=== PATIENT | male | born 1975 | race Caucasian/White ===

== ENCOUNTER 2016-04-23 15:29 | Inpatient (IN) | payer BC ==
[2016-04-23] MEDS ORDERED: IV VANCOMYCIN PER PHARMACY 1 EACH MISC MISCELLANE PRN (15:58)
[2016-04-23] MEDS ORDERED: SODIUM CHLORIDE 0.9% 500 ML IV STA (15:58)
[2016-04-23] MEDS ORDERED: KETOROLAC 30 MG/ML 1 ML VIAL IVP STA (16:00)
--- NOTE | 2016-04-23 16:00 | ED ---
Skin/Abscess/FB HPI - General Chief complaint: Skin/Abscess/Foreign Body Stated complaint: Skin abcess/leg Time Seen by Provider: 04/23/16 15:50 Source: patient, RN notes reviewed Mode of arrival: ambulatory Limitations: no limitations - History of Present Illness Initial comments: 40-year-old male presents to emergency room chief complaint of right posterior thigh redness swelling. Patient states she's had this redness and swelling for the past week or so. Patient states that he started antibiotics about 2 days ago and he's noticed that the toe most doubled in size it's more tender. Patient states there is any drainage from it. Patient denies any fever chills numbness. Patient denies any history of from this in the past. Patient denies any cough cold runny nose. Patient states she was concerned due to the continued redness and the fact that it was getting worse and not better so he thought that he should be evaluated.Patient denies any recent fever, chills, shortness of breath, chest pain, back pain, abdominal pain, nausea vomiting, numbness or tingling, dysuria or hematuria, constipation or diarrhea, headaches or visual changes, or any other current symptoms. - Related Data Home Medications Medication Instructions Recorded Confirmed Levofloxacin [Levaquin] 750 mg PO DAILY 04/23/16 04/23/16 Allergies Allergy/AdvReac Type Severity Reaction Status Date / Time No Known Allergies Allergy Verified 04/23/16 15:41 Review of Systems ROS Statement: Those systems with pertinent positive or pertinent negative responses have been documented in the HPI. ROS Other: All systems not noted in ROS Statement are negative. Past Medical History Past Medical History: No Reported History History of Any Multi-Drug Resistant Organisms: None Reported Past Surgical History: Adenoidectomy, Cholecystectomy, Orthopedic Surgery Past Psychological History: No Psychological Hx Reported Smoking Status: Current every day smoker Past Alcohol Use History: Occasional Past Drug Use History: None Reported General Exam - General Exam Comments Initial Comments: General: The patient is awake and alert, in no distress, and does not appear acutely ill. Neck: The neck is supple, there is no tenderness. Cardiovascular: There is a regular rate and rhythm. No murmur, rub or gallop is appreciated. Respiratory: Lungs are clear to auscultation, respirations are non-labored, breath sounds are equal. No wheezes, stridor, rales, or rhonchi. Musculoskeletal: Sensation intact to both pulses throughout right lower extremity. Patient has an indurated erythematous area to the posterior thigh that extends for about 50% of the posterior pharynx area. It does appear to be a small abrasion to the center of the area. Ovaries motion of right hip and right knee. Neurological: CN II-XII intact, There are no obvious motor or sensory deficits. Coordination appears grossly intact. Speech is normal. Skin: Skin is warm and dry and no rashes or lesions are noted. Psychiatric: Normal mood and affect. Limitations: no limitations Course Vital Signs 04/23/16 15:37 Temperature 97.7 F Pulse Rate 89 Respiratory 16 Rate Blood Pressure 135/74 Medical Decision Making - Medical Decision Making 40-year-old male presents for what appears to be a cellulitis to the right posterior thigh. Patient has failed outpatient treatment and it states that it is beating getting worse it is almost doubled in size over night. At this time lab work was reviewed. This we will admit patient for IV antibiotics. We did discuss this with the patient he is in agreement the plan. On-call was called regarding the case and they do agree to the admission. - Lab Data Result diagrams: 04/23/16 16:14 04/23/16 16:14 Lab Results 04/23/16 04/23/16 04/23/16 Range/Units 16:14 16:14 16:14 WBC 12.7 H (3.8-10.6) k/uL RBC 4.67 (4.30-5.90) m/uL Hgb 15.1 (13.0-17.5) gm/dL Hct 44.0 (39.0-53.0) % MCV 94.2 (80.0-100.0) fL MCH 32.2 (25.0-35.0) pg MCHC 34.2 (31.0-37.0) g/dL RDW 12.7 (11.5-15.5) % Plt Count 219 (150-450) k/uL Neutrophils % 71 % Lymphocytes % 19 % Monocytes % 6 % Eosinophils % 2 % Basophils % 0 % Neutrophils # 9.0 H (1.3-7.7) k/uL Lymphocytes # 2.4 (1.0-4.8) k/uL Monocytes # 0.8 (0-1.0) k/uL Eosinophils # 0.3 (0-0.7) k/uL Basophils # 0.0 (0-0.2) k/uL Sodium 143 (137-145) mmol/L Potassium 4.1 (3.5-5.1) mmol/L Chloride 109 H (98-107) mmol/L Carbon Dioxide 24 (22-30) mmol/L Anion Gap 10 mmol/L BUN 17 (9-20) mg/dL Creatinine 1.10 (0.66-1.25) mg/dL Est GFR (MDRD) Af Amer >60 (>60 ml/min/1.73 sqM) Est GFR (MDRD) Non-Af >60 (>60 ml/min/1.73 sqM) Glucose 111 H (74-99) mg/dL Plasma Lactic Acid Thaddeus 1.3 (0.7-2.0) mmol/L Calcium 9.1 (8.4-10.2) mg/dL Total Bilirubin 0.9 (0.2-1.3) mg/dL AST 27 (17-59) U/L ALT 40 (21-72) U/L Alkaline Phosphatase 104 (38-126) U/L Total Protein 7.0 (6.3-8.2) g/dL Albumin 3.7 (3.5-5.0) g/dL - Radiology Data Radiology results: report reviewed, image reviewed Disposition Clinical Impression: Cellulitis of right thigh, Failure of outpatient treatment Disposition: ADMITTED IP TO THIS [facility] Condition: Stable Referrals: Trent Baron MD [Primary Care Provider] - 1-2 days Decision Date: 04/23/16 Decision Time: 17:02
[2016-04-23] MEDS ORDERED: VANCOMYCIN 1,750 MG in SODIUM CHLORIDE 0.9% 250 ML IVPB STA (16:02)
[2016-04-23 16:26] LABS: Basophils % (A) 0 %; CH 32.9; Eosinophils # (A) 0.3 k/uL (0-0.7); Eosinophils % (A) 2 %; HDW 2.55; HGB 15.1 gm/dL (13.0-17.5); Luc # (Auto) 0.25; Luc % (Auto) 2; Lymphocytes # (A) 2.4 k/uL (1.0-4.8); Lymphocytes % (A) 19 %; MCH 32.2 pg (25.0-35.0); MCHC 34.2 g/dL (31.0-37.0); MCV 94.2 fL (80.0-100.0); Mean Platelet Volume 7.3; Monocytes # (A) 0.8 k/uL (0-1.0); Monocytes % (A) 6 %; Neutrophils % (A) 71 %; RBC 4.67 m/uL (4.30-5.90); RDW 12.7 % (11.5-15.5); WBC 12.7 k/uL (3.8-10.6); WBC (Perox) 13.17
[2016-04-23 16:37] LABS: ALT 40 U/L (21-72); AST 27 U/L (17-59); Alkaline Phosphatase 104 U/L (38-126); Anion Gap 10 mmol/L; Blood Urea Nitrogen 17 mg/dL (9-20); Calcium 9.1 mg/dL (8.4-10.2); Carbon Dioxide 24 mmol/L (22-30); Chloride 109 mmol/L (98-107); Glucose 111 mg/dL (74-99); Non-African American GFR(MDRD) >60 (>60 ml/min/1.73 sqM); Potassium 4.1 mmol/L (3.5-5.1); Sodium 143 mmol/L (137-145); Total Bilirubin 0.9 mg/dL (0.2-1.3)
[2016-04-23] MEDS ORDERED: ONDANSETRON 4 MG/2 ML VIAL IVP PRN (17:02)
[2016-04-23] MEDS ORDERED: IBUPROFEN 400 MG TAB PO PRN (17:02)
[2016-04-23] MEDS ORDERED: ACETAMINOPHEN TAB 325 MG TAB PO PRN (17:02)
[2016-04-23] MEDS ORDERED: NALOXONE 0.4 MG/ML 1 ML VIAL IV PRN (17:02)
[2016-04-23] MEDS: HYDROcodone/APAP 5-325MG 1 EACH TAB PO PRN ×2 (18:09→22:23)
[2016-04-23] MEDS: SODIUM CHLORIDE 0.9% 1,000 ML IV SCH (18:15)
--- NOTE | 2016-04-23 18:16 | US ---
EXAMINATION TYPE: US extremity nonvasc mass RT DATE OF EXAM: 04/23/2016 5:03 PM COMPARISON: NONE CLINICAL HISTORY: Pain. Redness to posterior upper thigh inferior to buttocks, no known injury, painf ul Ultrasound performed at the level of patient's symptomatology. TECHNOLOGIST IMPRESSION: 1.0cm complex area seen with obvious tract to skin line with surrounding ed ematous tissue, probable abscess versus other etiology. There is local edema present. IMPRESSION: There is likely local phlegmon, possible sebaceous cyst or small abscess.
[2016-04-23 20:32] LABS: Hemoglobin A1C 5.2 % (4.2-6.1)
[2016-04-24] MEDS: VANCOMYCIN 1,750 MG in SODIUM CHLORIDE 0.9% 250 ML IVPB SCH ×2 (03:33→15:12)
[2016-04-24] MEDS: SODIUM CHLORIDE 0.9% 1,000 ML IV SCH ×2 (03:33→12:37)
[2016-04-24] MEDS: HYDROcodone/APAP 5-325MG 1 EACH TAB PO PRN ×2 (07:32→12:32)
[2016-04-24 10:16] LABS: Basophils % (A) 1 %; CHCM 34.3; Eosinophils # (A) 0.3 k/uL (0-0.7); Eosinophils % (A) 3 %; HCT 43.1 % (39.0-53.0); HGB 14.5 gm/dL (13.0-17.5); Luc # (Auto) 0.22; Luc % (Auto) 3; Lymphocytes % (A) 23 %; MCH 32.6 pg (25.0-35.0); MCHC 33.6 g/dL (31.0-37.0); MCV 96.8 fL (80.0-100.0); Mean Platelet Volume 7.9; Monocytes # (A) 0.6 k/uL (0-1.0); Monocytes % (A) 8 %; Neutrophils # (A) 5.2 k/uL (1.3-7.7); Neutrophils % (A) 63 %; RBC 4.45 m/uL (4.30-5.90); RDW 12.7 % (11.5-15.5); WBC 8.3 k/uL (3.8-10.6); WBC (Perox) 9.36
[2016-04-24 10:41] LABS: ALT 32 U/L (21-72); AST 23 U/L (17-59); Alkaline Phosphatase 85 U/L (38-126); Anion Gap 8 mmol/L; Blood Urea Nitrogen 13 mg/dL (9-20); Calcium 8.9 mg/dL (8.4-10.2); Carbon Dioxide 22 mmol/L (22-30); Chloride 114 mmol/L (98-107); Glucose 104 mg/dL (74-99); Non-African American GFR(MDRD) >60 (>60 ml/min/1.73 sqM); Potassium 4.4 mmol/L (3.5-5.1); Sodium 144 mmol/L (137-145); Total Bilirubin 0.7 mg/dL (0.2-1.3); Total Protein 6.3 g/dL (6.3-8.2)
--- NOTE | 2016-04-24 14:10 | HP ---
DATE OF SERVICE: 04/23/2016 CHIEF COMPLAINT: Abscess. HISTORY OF PRESENT ILLNESS: Mr. Valencia is a 40-year-old male with no significant past medical history coming into the hospital with a chief complaint of abscess on the posterior side of the right thigh. Patient states that he noticed small pimple around one week back on the posterior side of his right thigh and slowly it was increasing in size, so he did go see his primary care doctor who started him on levofloxacin. The patient did not see any significant improvement. He has been having increasing swelling pain and redness and so he came into the hospital for further evaluation. The patient denies having any fevers, chills, or rigors. Denies having any difficulty in breathing. No chest pain. No abdominal pain, nausea, vomiting, or diarrhea. Patient denies having any weakness of his extremities. No UTI symptoms. Denies having any headaches or loss of consciousness or visual disturbances. REVIEW OF SYSTEMS: All 13 review of systems are done and negative except for the ones mentioned in the HPI. PAST MEDICAL HISTORY: None. HOME MEDICATIONS: Levofloxacin that his PCP, Dr. Baron, has started him on. Otherwise home medications none. FAMILY HISTORY: Positive for diabetes mellitus in his mother. SOCIAL HISTORY: He is a current every day smoker and smokes 1/2 pack a day and drinks 3 to 4 times week. PAST SURGICAL HISTORY: Adenoidectomy, cholecystectomy, orthopedic surgery. On examination, patient's vital signs: Temperature 97.6, heart rate 79, respiratory rate is 16, blood pressure 107/63, saturating at 96% on room air. GENERAL EXAMINATION: Patient appears to be in no acute distress. HEAD: Atraumatic, normocephalic. Pupils equal, round and reactive to light. No pallor. No icterus. NECK: No JVD. No thyromegaly. CARDIOVASCULAR: S1, S2 heard. No additional sounds. RESPIRATORY: Bilateral breath sounds are positive. No wheeze or crackles. ABDOMEN: Soft, nontender. Bowel sounds are positive. EXTREMITIES: No edema. No cyanosis, no clubbing. Peripheral pulses are felt. WEATHER ALGORITHM SCIENTIST: Alert, awake, oriented x3. No focal deficits. MUSCULOSKELETAL: No joint swellings or deformities. SKIN: No rashes. PSYCHIATRIC: Appropriate mood and affect. Examination of the right lower extremity: There is an indurated, erythematous area on the posterior side of the right thigh and very tender to touch and warm to touch. Could not identify the margins of the abscess as it was very tender to touch and deep into the tissue. The patient's labs: White count of 12.7, hemoglobin is 15.1, platelets of 219, sodium 143, potassium 4.1, chloride 109, bicarb 24, BUN 17, creatinine 1.10. ( ) 3.7, lactic acid is 1.3. ASSESSMENT AND PLAN: 1. Cellulitis of the right thigh on the posterior side. 2. Leukocytosis secondary to the above. PLAN: The patient failed outpatient treatment with levofloxacin so he has been started on vancomycin and ultrasound of the extremity showing local phlegmon. So will consult Surgery for possible I&D. Further recommendations to follow depending on the progress of the patient. JEFFD
[2016-04-24] MEDS: KETOROLAC 30 MG/ML 1 ML VIAL IVP PRN ×2 (15:18→23:44)
--- NOTE | 2016-04-24 15:18 | CONS ---
DATE OF CONSULTATION: 04/23/2016 REASON FOR CONSULT: Infection, right posterior thigh. HISTORY: The patient is a 40-year-old man who began noticing swelling and redness in the posterior thigh last week. He started antibiotics a couple of days ago orally. It was not any better Monday, so he went in and saw Dr. Baron and had an IM injection of antibiotic. It was decreasing in size today with increased pain, so he came into the emergency room. No fevers. No chills. No previous history of cysts in the area. No exposure to MRSA in the past. PAST MEDICAL HISTORY: Negative. SURGICAL HISTORY: Cholecystectomy, T and A, orthopedic surgeries. Medication as an outpatient was Levaquin. ALLERGIES: None. SOCIAL HISTORY: Smokes daily, occasional alcohol use. FAMILY HISTORY: Noncontributory. REVIEW OF SYSTEMS: Per chief complaint. PHYSICAL EXAMINATION: A 40-year-old man who is alert and oriented x3, in no acute distress. He has been afebrile. Pulse was 79, respirations 16, blood pressure is 107/63. INTEGUMENTARY: There is an area of right posterior thigh approximately that is about 5 cm x 12 cm in size. There is some central eschar. No obvious fluctuance or abscess that is drainable at this point. LABS: His white count was 12,700, hemoglobin was 15.0. An ultrasound was done, showing possibly a small 1-cm area which could be an early abscess or cyst. ASSESSMENT: Cellulitis, right posterior thigh with no obvious drainable abscess at this point. PLAN: Continue IV antibiotics, serial exams. If this develops into a drainable abscess, I should be able to do an I and D for him. Will follow with you.
--- NOTE | 2016-04-24 18:32 | PN ---
DATE OF SERVICE: 04/24/2016 Antonio is seen on rounds. He is still having pain in the back of his thigh. He has been afebrile. The area of cellulitis is actually decreased it is about 5 x 7 cm at this time. There is still some firmness and induration present along with the eschar. No definable abscess at this point. White count is down to 8300. ASSESSMENT: Cellulitis, posterior thigh. PLAN: Serial exams, continue IV antibiotics, monitor for development of a drainable abscess.
--- NOTE | 2016-04-24 20:51 | PN ---
DATE OF SERVICE: 04/24/2016 Mr. Valencia is a 40-year-old man with no significant past medical history coming in with an abscess on the posterior side of the right thigh. Patient did take levofloxacin as outpatient, but did not show any improvement in the abscess, so he came in to the hospital for further evaluation of the patient's pain. Started on vancomycin since yesterday and redness and swelling improved. Patient also had an ultrasound of his right thigh, which was showing a small abscess, most likely a local phlegmon. Today the patient is lying comfortably in the bed. He does not have any active complaints. REVIEW OF SYSTEMS: CONSTITUTIONAL: Denies having fever, chills or rigors. RESPIRATORY: No cough. No difficulty in breathing. GI: No abdominal pain, nausea, vomiting or diarrhea. : No dysuria or hematuria. Patient's medications have been reviewed. On examination, patient's vital signs: Temperature 97.2, heart rate 76, respiratory rate 16, blood pressure 112/65, saturating at 97% on room air. GENERAL: Patient appears to be no acute distress. HEAD: Atraumatic, normocephalic. EYES: Pupils round and reactive to light. NECK: No JVD. No thyromegaly. CARDIAC: S1 and S2 heard. No additional sounds. RESPIRATORY: Bilateral breath sounds are positive. No wheeze or crackles. ABDOMEN: Soft, nontender. Bowel sounds are positive. EXTREMITIES: No edema. No cyanosis. No clubbing. CIRCUIT BREAKER MECHANIC: Alert, awake, oriented x3. No focal deficits. RIGHT THIGH: There is significant improvement in the swelling and redness compared to yesterday, but it is brusher tender to touch. The patient's labs: White count of 8.3, hemoglobin is 14.5, platelets of 212. Sodium 144, potassium 4.4, chloride 114, bicarb 22, BUN 13, creatinine 0.90. ASSESSMENT: 1. Cellulitis of the right thigh on the posterior side. 2. Leukocytosis that is resolving. PLAN: Continue the patient on vancomycin. Surgery has been consulted, but the abscess is too small to be drained. Will continue with IV antibiotics for now and change to oral. In the next 24 to 48 hours, anticipate discharge. [facility] HOSPITALMaurice
[2016-04-24] MEDS ORDERED: DOCUSATE 100 MG CAP PO PRN (21:34)
[2016-04-25] MEDS: SODIUM CHLORIDE 0.9% 1,000 ML IV SCH ×3 (00:23→22:39)
[2016-04-25] MEDS ORDERED: LIDOCAINE 1% INJ 10MG/ML (20 ML MDV) SQ PRN (01:56)
[2016-04-25] MEDS: VANCOMYCIN 1,750 MG in SODIUM CHLORIDE 0.9% 250 ML IVPB SCH ×2 (03:43→16:38)
[2016-04-25 07:59] VITALS: RESP 16
--- NOTE | 2016-04-25 08:19 | P.PN ---
Subjective Principal diagnosis: Discontinue proximal 4-year-old white male essentially admitted for cellulitis of the right posterior thigh. Incision and drainage has been done. Cellulitis improving. He is currently on vancomycin. No sniffing chest pain or shortness of breath.culture and sensitivity is still pending. Objective - Vital Signs Vital signs: Vital Signs Temp 96.7 F L 04/25/16 07:00 Pulse 73 04/25/16 07:00 Resp 16 04/25/16 07:00 BP 108/60 04/25/16 07:00 Pulse Ox 96 04/25/16 07:00 Intake & Output 04/24/16 04/25/16 04/25/16 18:59 06:59 18:59 Intake Total 100 Balance 100 Intake: Oral 100 Other: # Voids 3 1 - Constitutional General appearance: Present: obese - EENT Eyes: Absent: abnormal pupil - Respiratory Respiratory: bilateral: CTA - Cardiovascular Heart sounds: normal: S1 - Gastrointestinal General gastrointestinal: Present: soft. Absent: tenderness - Integumentary Integumentary Comment(s): Drainage of abscess is noted with bloody serous drainage. Cellulitis is improving. Integumentary: Present: cellulitis - Labs CBC & Chem 7: 04/24/16 09:58 04/24/16 09:58 Labs: Abnormal Lab Results - Last 24 Hours (Table) 04/24/16 Range/Units 09:58 Chloride 114 H (98-107) mmol/L Glucose 104 H (74-99) mg/dL Albumin 3.3 L (3.5-5.0) g/dL Assessment and Plan (1) Cellulitis of right thigh Status: Acute (2) Failure of outpatient treatment Status: Acute Plan: Continue vancomycin for one day. I'm awaiting culture. Anticipate discharge in a.m.
[2016-04-25] MEDS: HYDROcodone/APAP 5-325MG 1 EACH TAB PO PRN (08:51)
[2016-04-25 09:54] LABS: HIV-1/HIV-2 Ab Screen NONREAC (NON REAC)
[2016-04-25] MEDS ORDERED: VANCOMYCIN TROUGH DUE 1 EACH MISC MISCELLANE ONE (15:00)
[2016-04-26] MEDS: VANCOMYCIN 1,750 MG in SODIUM CHLORIDE 0.9% 250 ML IVPB SCH (03:07)
[2016-04-26 07:47] VITALS: BP 133/87; TEMP 97.3
--- NOTE | 2016-04-26 08:13 | P.DS ---
Providers Date of admission: 04/23/16 17:07 Attending physician: Trent Baron Consults: 04/23/16 18:40 Consult Physician Routine Consulting Provider: [place] Loo Consult Reason/Comments: right thigh absess Do you want consulting provider notified?: Yes Primary care physician: Trent Baron - Discharge Diagnosis(es) (1) Cellulitis of right thigh Current Visit: Yes Status: Acute (2) Failure of outpatient treatment Current Visit: Yes Status: Acute Hospital Course: This discharge summary and 4-year-old white male essentially admitted for cellulitis and abscess of the right posterior thigh. Culture was pending but few gram-positive cocci is are noted. Blood cultures negative. We will restart Levaquin 750 mg daily until culture is ascertained. The patient will be discharged in stable condition with a work note for the next week. Patient Condition at Discharge: Stable Plan - Discharge Summary New Discharge Prescriptions: Levofloxacin [Levaquin] 750 mg PO DAILY #5 tab Discharge Medication List Ibuprofen [Motrin] 800 mg PO TID PRN 04/23/16 [History] Levofloxacin [Levaquin] 750 mg PO DAILY 04/23/16 [History] Levofloxacin [Levaquin] 750 mg PO DAILY #5 tab 04/26/16 [Rx] Follow up Appointment(s)/Referral(s): Trent Baron MD [Primary Care Provider] - 3 Days Discharge Disposition: HOME SELF-CARE
--- NOTE | 2016-04-26 08:48 | PCN ---
DATE OF PROCEDURE: SURGEON: LILY SANCHEZ DO PREOPERATIVE DIAGNOSIS: Abscess right posterior thigh. POSTOPERATIVE DIAGNOSIS: Abscess right posterior thigh. PROCEDURE: Incision and drainage. ANESTHESIA: 1% Lidocaine. SPECIMENS REMOVED: Cultures. GROSS FINDINGS AND PROCEDURE: The area on his posterior thigh is draining a little bit and the firmness appears to be primarily around the small eschar; therefore, I recommended I&D. The area is prepped. Local anesthetic is instilled into the skin and subcutaneous tissue. An 11 blade was used to make a stab incision. Either side of the eschar, cultures were obtained. The wound was probed with a sterile Q-tip. There was minimal purulent material. There was no tracking. It is washed out and a dressing was applied. Will await the culture.
[2016-04-26] MEDS ORDERED: LEVOFLOXACIN 750 MG TAB PO SCH (09:00)
[2016-04-26 09:30] VITALS: PULSE 76
== END 2016-04-26 09:40 | disposition home or self-care (01) | DRG 603 ==
LOC: EC 15:29 → 4MS4W 17:07
PROVIDERS: ADMIT Family Medicine; ATTEND Family Medicine
PROC: 0J9L0ZX Drainage of Right Upper Leg Subcutaneous Tissue and Fascia, Open Approach, Diagnostic (ICD-10-PCS; principal; 2016-04-25)
DX: L03.115 Cellulitis of right lower limb (principal); B95.62 Methicillin resistant Staphylococcus aureus infection as the cause of diseases classified elsewhere; F17.210 Nicotine dependence, cigarettes, uncomplicated; Z83.3 Family history of diabetes mellitus; L02.415 Cutaneous abscess of right lower limb
CPT/HCPCS: 36415; 80053; 80202; 83036; 83605; 85025; 87040; 87070; 87075; 87077; 87186; 87205; 87389; 96365; 96375; 99284

== ENCOUNTER 2016-06-04 03:15 | Emergency (ER) | payer BC ==
[2016-06-04 03:21] VITALS: BP 130/64; PULSE 87; RESP 18; TEMP 98.5
[2016-06-04] MEDS ORDERED: CLINDAMYCIN 150 MG CAP PO STA (03:36)
--- NOTE | 2016-06-04 03:36 | ED ---
Skin/Abscess/FB HPI - General Chief complaint: Skin/Abscess/Foreign Body Stated complaint: Hand infection Time Seen by Provider: 06/04/16 03:35 Source: patient, RN notes reviewed Mode of arrival: ambulatory Limitations: no limitations - History of Present Illness Initial comments: 41-year-old male presents to the emergency Department chief complaint of right finger abscess. Patient statesthe last day or so. Patient states become swollen and tender and he has noticed some purulent discharge that he was concerned. Patient denies any fever chills. Patient denies any redness or streaking. Patient was concerned due to the pain and swelling to thought that he should be evaluated. Patient has also noticed some swelling of his left lower lid the sauce [place] also concerned him. Patient states that he is not currently having any other symptoms at this time.Patient denies any recent fever , chills, shortness of breath, chest pain, back pain, abdominal pain, nausea vomiting, numbness or tingling, dysuria or hematuria, constipation or diarrhea, headaches or visual changes, or any other current symptoms. - Related Data Previous Rx's Medication Instructions Recorded Clindamycin [Cleocin] 450 mg PO Q8HR #90 capsule 06/04/16 Allergies Allergy/AdvReac Type Severity Reaction Status Date / Time No Known Allergies Allergy Verified 06/04/16 03:22 Review of Systems ROS Statement: Those systems with pertinent positive or pertinent negative responses have been documented in the HPI. ROS Other: All systems not noted in ROS Statement are negative. Past Medical History Past Medical History: No Reported History Additional Past Medical History / Comment(s): cellulitis History of Any Multi-Drug Resistant Organisms: MRSA Date of last positivie culture/infection: 04/25/16 MDRO Source:: THIGH Past Surgical History: Adenoidectomy, Cholecystectomy, Orthopedic Surgery Past Psychological History: No Psychological Hx Reported Smoking Status: Current every day smoker Past Alcohol Use History: Occasional Past Drug Use History: None Reported General Exam - General Exam Comments Initial Comments: General: The patient is awake and alert, in no distress, and does not appear acutely ill. Neck: The neck is supple, there is no tenderness. Eyes: Patient does appear to have a stye to the left thigh. Cardiovascular: There is a regular rate and rhythm. No murmur, rub or gallop is appreciated. Respiratory: Lungs are clear to auscultation, respirations are non-labored, breath sounds are equal. No wheezes, stridor, rales, or rhonchi. Musculoskeletal: Sensation to 2+ pulses. Right upper extremity. Full range of motion of the right hand and all digits. Patient does appear to have an abscess to the medial aspect of the right middle finger that does. With drainage. Patient has no erythema or streaking noted on the area of swelling which is limited above the MCP joint. Neurological: CN II-XII intact, There are no obvious motor or sensory deficits. Coordination appears grossly intact. Speech is normal. Skin: Skin is warm and dry and no rashes or lesions are noted. Psychiatric: Normal mood and affect. Limitations: no limitations Course Vital Signs 06/04/16 03:18 Temperature 98.5 F Pulse Rate 87 Respiratory 18 Rate Blood Pressure 130/64 O2 Sat by Pulse 98 Oximetry Medical Decision Making - Medical Decision Making 41-year-old male presents for stye to the left eye as well as a right finger abscess. This time patient went I&D. We discussed return parameters and follow -up. We did discuss care of this time as well. Discussed other etiologies. Discussed test. We discussed that this worsens in any way she is return the emergency department for evaluation due to the concern about function of hand pending the patient's course. Family patient and agree with the plan and all questions have been answered. He will be discharged home. Disposition Clinical Impression: Abscess of right middle finger, Hordeolum of left lower eyelid Disposition: HOME SELF-CARE Condition: Stable Instructions: Abscess (ED) Additional Instructions: Please use medication as discussed. Please follow up with family doctor if symptoms have not improved over the next two days. Please return to the emergency room if your symptoms increase or worsen or for any other concerns. Prescriptions: Clindamycin [Cleocin] 450 mg PO Q8HR #90 capsule Referrals: Trent Baron MD [Primary Care Provider] - 1-2 days Time of Disposition: 03:47
== END 2016-06-04 04:00 | disposition home or self-care (01) ==
LOC: EC 03:15
DX: L02.511 Cutaneous abscess of right hand (principal); H00.015 Hordeolum externum left lower eyelid; F17.200 Nicotine dependence, unspecified, uncomplicated
CPT/HCPCS: 99282

== ENCOUNTER 2016-09-11 22:14 | Inpatient (IN) | payer BC ==
[2016-09-11] MEDS ORDERED: SODIUM CHLORIDE 0.9% 500 ML IV STA (23:17)
[2016-09-11 23:42] LABS: Basophils # (A) 0.1 k/uL (0-0.2); Basophils % (A) 1 %; CHCM 35.9; Eosinophils # (A) 0.3 k/uL (0-0.7); Eosinophils % (A) 3 %; HCT 45.1 % (39.0-53.0); HDW 2.62; HGB 15.9 gm/dL (13.0-17.5); Luc # (Auto) 0.31; Luc % (Auto) 3; Lymphocytes # (A) 3.3 k/uL (1.0-4.8); Lymphocytes % (A) 31 %; MCH 32.6 pg (25.0-35.0); MCHC 35.4 g/dL (31.0-37.0); MCV 92.2 fL (80.0-100.0); Mean Platelet Volume 7.4; Monocytes # (A) 0.7 k/uL (0-1.0); Monocytes % (A) 6 %; Neutrophils # (A) 6.1 k/uL (1.3-7.7); Neutrophils % (A) 57 %; RBC 4.89 m/uL (4.30-5.90); RDW 12.7 % (11.5-15.5); WBC 10.7 k/uL (3.8-10.6)
[2016-09-11 23:51] LABS: ALT 44 U/L (21-72); AST 24 U/L (17-59); Alkaline Phosphatase 129 U/L (38-126); Anion Gap 12 mmol/L; Blood Urea Nitrogen 16 mg/dL (9-20); Calcium 9.1 mg/dL (8.4-10.2); Carbon Dioxide 23 mmol/L (22-30); Chloride 107 mmol/L (98-107); Glucose 94 mg/dL (74-99); Non-African American GFR(MDRD) >60 (>60 ml/min/1.73 sqM); Potassium 4.1 mmol/L (3.5-5.1); Sodium 142 mmol/L (137-145); Total Bilirubin 0.9 mg/dL (0.2-1.3); Total Protein 7.1 g/dL (6.3-8.2)
[2016-09-12] MEDS ORDERED: HYDROcodone/APAP 5-325MG 1 EACH TAB PO PRN (00:26)
[2016-09-12] MEDS ORDERED: NALOXONE 0.4 MG/ML 1 ML VIAL IV PRN (00:26)
[2016-09-12] MEDS ORDERED: ONDANSETRON 4 MG/2 ML VIAL IVP PRN (00:26)
[2016-09-12] MEDS ORDERED: ACETAMINOPHEN TAB 325 MG TAB PO PRN (00:26)
--- NOTE | 2016-09-12 00:26 | ED ---
Skin/Abscess/FB HPI <Toan Gonzalez - Last Filed: 09/12/16 00:33> - General Source: patient Mode of arrival: ambulatory Limitations: no limitations <Bernadette Hernandez - Last Filed: 09/13/16 14:25> - General Chief complaint: Skin/Abscess/Foreign Body Stated complaint: boil on leg Time Seen by Provider: 09/11/16 22:39 - History of Present Illness Initial comments: 41-year-old male patient presents to emergency department today for evaluation of an abscess to his right thigh. Patient states that the site started as a small "boil" about a week ago. He states the pain and redness has been increasing since. Patient states he has had something similar to this in the past and they had to give him IV antibiotics. Patient states that today he has been feeling more ill, mildly nauseated, and has been getting chills. He denies any fever, abdominal pain, vomiting, and the patient, diarrhea, hematuria , dysuria, urinary frequency or urinary urgency. Patient denies any drug use. (Bernadette Hernandez) - Related Data Home Medications Medication Instructions Recorded Confirmed No Known Home Medications [No 09/11/16 09/11/16 Known Home Medications] Allergies Allergy/AdvReac Type Severity Reaction Status Date / Time No Known Allergies Allergy Verified 09/11/16 23:20 Review of Systems ROS Other: All systems not noted in ROS Statement are negative. <Toan Gonzalez - Last Filed: 09/12/16 00:33> ROS Other: All systems not noted in ROS Statement are negative. <Bernadette Hernandez - Last Filed: 09/13/16 14:25> ROS Statement: Those systems with pertinent positive or pertinent negative responses have been documented in the HPI. Past Medical History Past Medical History: No Reported History Additional Past Medical History / Comment(s): cellulitis History of Any Multi-Drug Resistant Organisms: MRSA Date of last positivie culture/infection: 04/25/16 MDRO Source:: THIGH Past Surgical History: Adenoidectomy, Cholecystectomy, Orthopedic Surgery Past Psychological History: No Psychological Hx Reported Smoking Status: Current every day smoker Past Alcohol Use History: Occasional Past Drug Use History: None Reported <Bernadette Hernandez - Last Filed: 09/13/16 14:25> General Exam Limitations: no limitations General appearance: alert, in no apparent distress Head exam: Present: atraumatic, normocephalic, normal inspection Eye exam: Present: normal appearance, PERRL, EOMI. Absent: scleral icterus, conjunctival injection, periorbital swelling ENT exam: Present: normal exam, mucous membranes moist Neck exam: Present: normal inspection. Absent: tenderness, meningismus, lymphadenopathy Respiratory exam: Present: normal lung sounds bilaterally. Absent: respiratory distress, wheezes, rales, rhonchi, stridor Cardiovascular Exam: Present: regular rate, normal rhythm, normal heart sounds. Absent: systolic murmur, diastolic murmur, rubs, gallop, clicks GI/Abdominal exam: Present: soft, normal bowel sounds. Absent: distended, tenderness, guarding, rebound, rigid Extremities exam: Present: full ROM, normal capillary refill, other (Right thigh abscess, 6 cm area of firm induration and swelling, with surrounding cellulitis.) Back exam: Present: normal inspection Neurological exam: Present: alert, oriented X3, CN II-XII intact Psychiatric exam: Present: normal affect, normal mood Skin exam: Present: warm, dry, intact, normal color. Absent: rash <Bernadette Hernandez - Last Filed: 09/13/16 14:25> Course <Toan Gonzalez - Last Filed: 09/12/16 00:33> <Bernadette Hernandez - Last Filed: 09/13/16 14:25> Vital Signs 09/11/16 09/12/16 22:34 00:38 Temperature 98.3 F 97.9 F Pulse Rate 104 H 90 Respiratory 20 16 Rate Blood Pressure 137/84 128/61 O2 Sat by Pulse 100 99 Oximetry - Reevaluation(s) Reevaluation #1: 09/12/16 00:33 I did review this case and did discuss the findings patient will be admitted with surgical consultation (Toan Gonzalez) Medical Decision Making - Lab Data Result diagrams: 09/11/16 23:25 09/11/16 23:25 <Toan Gonzalez - Last Filed: 09/12/16 00:33> - Lab Data Result diagrams: 09/13/16 07:32 09/11/16 23:25 <Bernadette Hernandez - Last Filed: 09/13/16 14:25> - Medical Decision Making 41-year-old male patient with an abscess to his right thigh. White blood cell count is 10.7. Patient is afebrile. Abscess is large with surrounding cellulitis. Patient will be admitted to Dr. Willson with surgical consult. Further evaluation of the abscess. Patient placed on IV antibiotics. (Bernadette Hernandez) - Lab Data Lab Results 09/11/16 09/11/16 Range/Units 23:25 23:25 WBC 10.7 H (3.8-10.6) k/uL RBC 4.89 (4.30-5.90) m/uL Hgb 15.9 (13.0-17.5) gm/dL Hct 45.1 (39.0-53.0) % MCV 92.2 (80.0-100.0) fL MCH 32.6 (25.0-35.0) pg MCHC 35.4 (31.0-37.0) g/dL RDW 12.7 (11.5-15.5) % Plt Count 244 (150-450) k/uL Neutrophils % 57 % Lymphocytes % 31 % Monocytes % 6 % Eosinophils % 3 % Basophils % 1 % Neutrophils # 6.1 (1.3-7.7) k/uL Lymphocytes # 3.3 (1.0-4.8) k/uL Monocytes # 0.7 (0-1.0) k/uL Eosinophils # 0.3 (0-0.7) k/uL Basophils # 0.1 (0-0.2) k/uL Sodium 142 (137-145) mmol/L Potassium 4.1 (3.5-5.1) mmol/L Chloride 107 (98-107) mmol/L Carbon Dioxide 23 (22-30) mmol/L Anion Gap 12 mmol/L BUN 16 (9-20) mg/dL Creatinine 1.10 (0.66-1.25) mg/dL Est GFR (MDRD) Af Amer >60 (>60 ml/min/1.73 sqM) Est GFR (MDRD) Non-Af >60 (>60 ml/min/1.73 sqM) Glucose 94 (74-99) mg/dL Calcium 9.1 (8.4-10.2) mg/dL Total Bilirubin 0.9 (0.2-1.3) mg/dL AST 24 (17-59) U/L ALT 44 (21-72) U/L Alkaline Phosphatase 129 H (38-126) U/L Total Protein 7.1 (6.3-8.2) g/dL Albumin 4.0 (3.5-5.0) g/dL Disposition <Toan Gonzalez - Last Filed: 09/12/16 00:33> Decision to Admit Reason: Admit from EC Decision Date: 09/12/16 Decision Time: 00:25 <Bernadette Hernandez - Last Filed: 09/13/16 14:25> Clinical Impression: Abscess of right thigh, Cellulitis of right thigh Disposition: ADMITTED IP TO THIS [facility] Condition: Fair
[2016-09-12 01:56] VITALS: BMI 34.2
--- NOTE | 2016-09-12 08:15 | P.HPIM ---
History of Present Illness H&P Date: 09/12/16 Chief Complaint: Right lower extremity pain This is a history and physical on a 41-year-old white male who is fairly well- known to my practice and has an underlying history of right lower extremity abscess/cellulitis. The patient states yesterday having significant fever and is appropriately admitted for IV treatment. He states much improvement after being started on appropriate IV antibiotics Review of Systems Constitutional: Reports fever Eyes: denies blurred vision, denies pain Ears, nose, mouth and throat: Denies headache, Denies sore throat Respiratory: Denies cough Gastrointestinal: Denies abdominal pain, Denies diarrhea, Denies nausea, Denies vomiting Genitourinary: Denies discharge, Denies dysuria Musculoskeletal: Denies myalgias Integumentary: Reports lesions, Reports sores Neurological: Denies numbness, Denies weakness Past Medical History Past Medical History: No Reported History Additional Past Medical History / Comment(s): cellulitis History of Any Multi-Drug Resistant Organisms: MRSA Date of last positivie culture/infection: 04/25/16 MDRO Source:: THIGH Past Surgical History: Adenoidectomy, Cholecystectomy, Orthopedic Surgery Past Psychological History: No Psychological Hx Reported Smoking Status: Current every day smoker Past Alcohol Use History: Occasional Past Drug Use History: None Reported Medications and Allergies Home Medications Medication Instructions Recorded Confirmed Type No Known Home Medications [No 09/11/16 09/11/16 History Known Home Medications] Allergies Allergy/AdvReac Type Severity Reaction Status Date / Time No Known Allergies Allergy Verified 09/11/16 23:20 Physical Exam Vitals: Vital Signs Temp Pulse Pulse Pulse Resp BP BP 09/12/16 01:37 97.8 F 82 82 18 126/66 09/12/16 00:38 97.9 F 90 16 128/61 09/11/16 22:34 98.3 F 104 H 20 137/84 BP Pulse Ox 09/12/16 01:37 126/66 95 09/12/16 00:38 99 09/11/16 22:34 100 Intake and Output 09/11/16 09/12/16 09/12/16 22:59 06:59 14:59 Other: # Voids 1 Weight 108.862 kg 114.5 kg - Constitutional General appearance: no acute distress - EENT Eyes: EOMI - Neck Neck: no lymphadenopathy - Respiratory Respiratory: bilateral: CTA - Cardiovascular Rhythm: regular Heart sounds: normal: S1, S2 - Gastrointestinal General gastrointestinal: soft, no tenderness - Integumentary Right lateral thigh cellulitis. Integumentary: cellulitis - Neurologic Neurologic: CNII-XII intact Results CBC & Chem 7: 09/11/16 23:25 09/11/16 23:25 Labs: Abnormal Lab Results - Last 24 Hours (Table) 09/11/16 09/11/16 Range/Units 23:25 23:25 WBC 10.7 H (3.8-10.6) k/uL Alkaline Phosphatase 129 H (38-126) U/L Thrombosis Risk Factor Assmnt - Choose All That Apply Any of the Below Risk Factors Present?: No Assessment and Plan (1) Abscess of right thigh Status: Acute (2) Cellulitis of right thigh Status: Acute Plan: Continue current regimen of antibiotic treatment. Question need to consult infectious disease if no improvement. Otherwise, order CBC and CMP in a.m. See orders otherwise.
[2016-09-12] MEDS: SODIUM CHLORIDE 0.9% 1,000 ML IV SCH ×3 (08:40→21:49)
[2016-09-12] MEDS ORDERED: IV FLUID CONTINUATION 1,000 ML IV ONE (10:37)
[2016-09-12] MEDS ORDERED: HEPARIN SODIUM,PORCINE 5,000 UNIT/ML 1 ML VIAL SQ ONE (12:01)
--- NOTE | 2016-09-12 12:14 | P.GSCN ---
History of Present Illness Consult date: 09/12/16 Reason for Consult: Right thigh abscess History of present illness: Patient with complaints of a area of redness in the right lateral thigh. He has a history of cellulitis 6 months ago and had a small incision and drainage. He apparently did have MRSA at that time. 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 He was complaining of increasing pain in the right thigh. White blood cell count 10.7. No x-rays or ultrasound. No recent trauma. No fevers. Review of Systems The patient denies any acute changes in vision or hearing, no dysphagia or odynophagia, no chest pain or shortness of breath, no dysuria or hematuria, no headache, no runny nose, no rectal bleeding or melena, no unexplained weight loss All systems: negative Past Medical History Past Medical History: No Reported History Additional Past Medical History / Comment(s): cellulitis History of Any Multi-Drug Resistant Organisms: MRSA Year Discovered:: 04/25/16 MDRO Source:: THIGH Past Surgical History: Adenoidectomy, Cholecystectomy, Orthopedic Surgery Past Psychological History: No Psychological Hx Reported Smoking Status: Current every day smoker Past Alcohol Use History: Occasional Past Drug Use History: None Reported Medications and Allergies Home Medications Medication Instructions Recorded Confirmed Type No Known Home Medications [No 09/11/16 09/11/16 History Known Home Medications] Allergies Allergy/AdvReac Type Severity Reaction Status Date / Time No Known Allergies Allergy Verified 09/11/16 23:20 Surgical - Exam Vital Signs Temp Pulse Resp BP Pulse Ox 98.3 F 104 H 20 137/84 100 09/11/16 22:34 09/11/16 22:34 09/11/16 22:34 09/11/16 22:34 09/11/16 22:34 Physical exam: General: Well-developed, well-nourished HEENT: Normocephalic, sclerae nonicteric Abdomen: Nontender, nondistended Extremities: Right thigh with area of erythema measuring about 8 x 8 cm, fluctuant area in the center measuring 2 cm with some ischemic appearing skin mildly tender Neuro: Alert and oriented Results - Labs 09/11/16 23:25 09/11/16 23:25 Abnormal Lab Results - Last 24 Hours (Table) 09/11/16 09/11/16 Range/Units 23:25 23:25 WBC 10.7 H (3.8-10.6) k/uL Alkaline Phosphatase 129 H (38-126) U/L Microbiology - Last 24 Hours (Table) 09/11/16 23:25 Wound Culture - Preliminary Leg - Right Diabetes panel 09/11/16 Range/Units 23:25 Sodium 142 (137-145) mmol/L Potassium 4.1 (3.5-5.1) mmol/L Chloride 107 (98-107) mmol/L Carbon Dioxide 23 (22-30) mmol/L BUN 16 (9-20) mg/dL Creatinine 1.10 (0.66-1.25) mg/dL Glucose 94 (74-99) mg/dL Calcium 9.1 (8.4-10.2) mg/dL AST 24 (17-59) U/L ALT 44 (21-72) U/L Alkaline Phosphatase 129 H (38-126) U/L Total Protein 7.1 (6.3-8.2) g/dL Albumin 4.0 (3.5-5.0) g/dL Calcium panel 09/11/16 Range/Units 23:25 Calcium 9.1 (8.4-10.2) mg/dL Albumin 4.0 (3.5-5.0) g/dL Pituitary panel 09/11/16 Range/Units 23:25 Sodium 142 (137-145) mmol/L Potassium 4.1 (3.5-5.1) mmol/L Chloride 107 (98-107) mmol/L Carbon Dioxide 23 (22-30) mmol/L BUN 16 (9-20) mg/dL Creatinine 1.10 (0.66-1.25) mg/dL Glucose 94 (74-99) mg/dL Calcium 9.1 (8.4-10.2) mg/dL Adrenal panel 09/11/16 Range/Units 23:25 Sodium 142 (137-145) mmol/L Potassium 4.1 (3.5-5.1) mmol/L Chloride 107 (98-107) mmol/L Carbon Dioxide 23 (22-30) mmol/L BUN 16 (9-20) mg/dL Creatinine 1.10 (0.66-1.25) mg/dL Glucose 94 (74-99) mg/dL Calcium 9.1 (8.4-10.2) mg/dL Total Bilirubin 0.9 (0.2-1.3) mg/dL AST 24 (17-59) U/L ALT 44 (21-72) U/L Alkaline Phosphatase 129 H (38-126) U/L Total Protein 7.1 (6.3-8.2) g/dL Albumin 4.0 (3.5-5.0) g/dL Assessment and Plan (1) Abscess of right thigh Narrative/Plan: Will proceed with incision and drainage right thigh abscess. Risks of bleeding , infection, wound formation discussed. He understands and wishes to proceed. Status: Acute
[2016-09-12] MEDS ORDERED: KETAMINE 10 MG/ML 20 ML VIAL ONE (12:23)
[2016-09-12] MEDS ORDERED: fentaNYL (PF) 50 MCG/ML 2 ML AMP ONE (12:23)
[2016-09-12] MEDS ORDERED: PROPOFOL 10 MG/ML 20 ML VIAL IV ONE (12:23)
[2016-09-12] MEDS ORDERED: LIDOCAINE 1% INJ 10MG/ML (20 ML MDV) ONE (12:23)
[2016-09-12] MEDS ORDERED: MIDAZOLAM 2 MG/2 ML VIAL ONE (12:23)
[2016-09-12] MEDS ORDERED: BUPIVACAINE (PF) 0.25% 30 ML VIAL SQ ONE ×2 (12:37)
[2016-09-12] MEDS ORDERED: IV VANCOMYCIN PER PHARMACY 1 EACH MISC MISCELLANE PRN (12:48)
--- NOTE | 2016-09-12 12:50 | P.PCN ---
Date of Procedure: 09/12/16 Preoperative Diagnosis: Postoperative Diagnosis: Procedure(s) Performed: PREOPERATIVE DIAGNOSIS: Right thigh abscess POSTOPERATIVE DIAGNOSIS: Same PROCEDURE: I&D right thigh abscess SURGEON: Ruthie EBL: Minimal ANESTHESIA: Sedation and local COMPLICATIONS: None OPERATIVE PROCEDURE: Patient was placed never table in the left decubitus position. The patient's right lateral thigh was prepped and draped in usual sterile fashion. A curvilinear elliptical shaped incision was made overlying the ischemic appearing skin and a small portion of skin was excised. Entrance into a subcutaneous abscess cavity took place. Cultures were taken. The wound was irrigated. This was noted to track deeper into the thigh approximate 4 cm. The abscess was thought to measure approximately 2 x 2 by 4 cm. The wound was then packed with iodoform gauze and a sterile dressing was applied. DISPOSITION: Stable to recovery room Implants: Indications for Procedure: Operative Findings: Description of Procedure:
[2016-09-12] MEDS ORDERED: VANCOMYCIN 1,750 MG in SODIUM CHLORIDE 0.9% 250 ML IVPB ONE (14:00)
[2016-09-12] MEDS: HEPARIN SODIUM,PORCINE 5,000 UNIT/ML 1 ML VIAL SQ STA ×2 (15:36→15:44)
[2016-09-12] MEDS: VANCOMYCIN 2,000 MG in SODIUM CHLORIDE 0.9% 500 ML IVPB SCH (23:26)
[2016-09-13 07:56] LABS: Basophils # (A) 0.1 k/uL (0-0.2); Basophils % (A) 1 %; CH 32.7; CHCM 34.7; Eosinophils # (A) 0.2 k/uL (0-0.7); Eosinophils % (A) 2 %; HCT 46.6 % (39.0-53.0); HDW 2.63; HGB 15.9 gm/dL (13.0-17.5); Luc # (Auto) 0.19; Luc % (Auto) 2; Lymphocytes # (A) 2.6 k/uL (1.0-4.8); Lymphocytes % (A) 26 %; MCH 32.1 pg (25.0-35.0); MCV 94.4 fL (80.0-100.0); Mean Platelet Volume 7.3; Monocytes # (A) 0.7 k/uL (0-1.0); Monocytes % (A) 7 %; Neutrophils # (A) 6.3 k/uL (1.3-7.7); Neutrophils % (A) 62 %; RBC 4.93 m/uL (4.30-5.90); RDW 12.7 % (11.5-15.5); WBC 10.1 k/uL (3.8-10.6); WBC (Perox) 10.55
--- NOTE | 2016-09-13 08:34 | P.PN ---
Subjective Principal diagnosis: This a continue present on a 41-year-old white male sex admitted secondary to cellulitis and right thigh abscess. He is postop day #1 incision and drainage. He states significant pain. We'll go ahead and treat for appropriate pain control. No significant fever or chills stated. No nausea or vomiting. He seems to be tolerating Objective - Vital Signs Vital signs: Vital Signs Temp 97.0 F L 09/12/16 21:00 Pulse 69 09/13/16 00:00 Resp 16 09/13/16 00:00 BP 123/61 09/12/16 21:00 Pulse Ox 96 09/12/16 21:00 Intake & Output 09/12/16 09/13/16 09/13/16 18:59 06:59 18:59 Intake Total 1170 1949 Output Total 1 Balance 1169 1949 Intake: IV 1170 1349 Sodium Chloride 0.9% 1, 700 1349 000 ml @ 50 mls/hr IV . Q20H [facility] Rx#:[id number] cefTRIAXone 1,000 mg In 50 Sodium Chloride 0.9% 50 ml @ 100 mls/hr IVPB Q24HR [facility] Rx#:[id number] Intake, IV Titration 500 Amount Vancomycin 2,000 mg In 500 Sodium Chloride 0.9% 500 ml @ 167 mls/hr IVPB Q12HR@0000,1200 [facility] Rx#: [id number] Oral 100 Output: Estimated Blood Loss 1 Other: Voiding Method Toilet Toilet # Voids 1 - Constitutional General appearance: Present: average body habitus - EENT Eyes: Absent: abnormal pupil - Respiratory Respiratory: bilateral: CTA - Cardiovascular Rhythm: regular - Gastrointestinal General gastrointestinal: Present: soft. Absent: tenderness - Integumentary Integumentary: Present: cellulitis - Labs CBC & Chem 7: 09/13/16 07:32 09/11/16 23:25 Labs: Microbiology - Last 24 Hours (Table) 09/12/16 12:46 Gram Stain - Preliminary Hip - Right Wound Culture - Preliminary 09/11/16 23:25 Blood Culture - Preliminary Blood No Growth after 24 hours 09/12/16 12:46 Anaerobic Culture - Preliminary Hip - Right 09/11/16 23:25 Gram Stain - Preliminary Leg - Right Wound Culture - Preliminary Assessment and Plan (1) Abscess of right thigh Status: Acute (2) Cellulitis of right thigh Status: Acute Plan: I would like to continue IV antibiotics for the next day or so. Anticipate discharge in a.m. if stable from a surgical perspective. Appropriate pain control. cultures are pending
[2016-09-13] MEDS: VANCOMYCIN 2,000 MG in SODIUM CHLORIDE 0.9% 500 ML IVPB SCH ×2 (13:13→23:35)
--- NOTE | 2016-09-13 13:25 | P.PN ---
Subjective Principal diagnosis: Right thigh abscess Patient says his pain is improved although was uncomfortable and they did dressing changes earlier. Cultures are preliminarily suggesting MRSA. He says his pain is improved. Objective - Vital Signs Vital signs: Vital Signs Temp 97.6 F 09/13/16 07:00 Pulse 68 09/13/16 07:00 Resp 16 09/13/16 08:00 BP 118/65 09/13/16 07:00 Pulse Ox 97 09/13/16 07:00 Intake & Output 09/12/16 09/13/16 09/13/16 18:59 06:59 18:59 Intake Total 1170 1949 Output Total 1 Balance 1169 1949 Intake: IV 1170 1349 Sodium Chloride 0.9% 1, 700 1349 000 ml @ 50 mls/hr IV . Q20H [facility] Rx#:[id number] cefTRIAXone 1,000 mg In 50 Sodium Chloride 0.9% 50 ml @ 100 mls/hr IVPB Q24HR [facility] Rx#:[id number] Intake, IV Titration 500 Amount Vancomycin 2,000 mg In 500 Sodium Chloride 0.9% 500 ml @ 167 mls/hr IVPB Q12HR@0000,1200 [facility] Rx#: [id number] Oral 100 Output: Estimated Blood Loss 1 Other: Voiding Method Toilet Toilet Toilet # Voids 1 - Exam Right thigh with diminished erythema and decreased tenderness, serous sinus drainage - Labs CBC & Chem 7: 09/13/16 07:32 09/11/16 23:25 Labs: Microbiology - Last 24 Hours (Table) 09/11/16 23:25 Gram Stain - Preliminary Leg - Right Wound Culture - Preliminary Presumptive MRSA 09/12/16 12:46 Gram Stain - Preliminary Hip - Right Wound Culture - Preliminary 09/11/16 23:25 Blood Culture - Preliminary Blood No Growth after 24 hours 09/12/16 12:46 Anaerobic Culture - Preliminary Hip - Right Assessment and Plan (1) Abscess of right thigh Narrative/Plan: Continue local wound care. Await final cultures. Possible discharge tomorrow per primary service. Status: Acute
[2016-09-13] MEDS: SODIUM CHLORIDE 0.9% 1,000 ML IV SCH (17:51)
[2016-09-14 08:13] VITALS: BP 123/80; PULSE 65; RESP 18; TEMP 98.1
--- NOTE | 2016-09-14 08:22 | P.DS ---
Providers Date of admission: 09/12/16 00:32 Attending physician: Trent Baron Consults: 09/12/16 00:26 Consult Physician Stat Consulting Provider: Frantz Hendricks Consult Reason/Comments: Right thigh abscess; cellulitis Do you want consulting provider notified?: Yes Primary care physician: Trent Baron - Discharge Diagnosis(es) (1) Abscess of right thigh Current Visit: Yes Status: Acute (2) Cellulitis of right thigh Current Visit: Yes Status: Acute Hospital Course: The patient is essentially admitted for appropriate cellulitis and abscess the right hip. He had significant drainage and presumptive MRSA is noted. He will be discharged on Levaquin pending appropriate culture. Vancomycin has been an effective. He will follow-up in 3-5 days. Patient Condition at Discharge: Fair Plan - Discharge Summary New Discharge Prescriptions: New Levofloxacin Oral Soln [Levaquin Oral Soln] 0 mg PO DAILY #10 ml Discharge Medication List Levofloxacin Oral Soln [Levaquin Oral Soln] 0 mg PO DAILY #10 ml 09/14/16 [Rx] Follow up Appointment(s)/Referral(s): Trent Baron MD [Primary Care Provider] - 3 Days Discharge Disposition: HOME SELF-CARE
[2016-09-14] MEDS ORDERED: VANCOMYCIN TROUGH DUE 1 EACH MISC MISCELLANE ONE (11:00)
== END 2016-09-14 10:04 | disposition home or self-care (01) | DRG 581 ==
LOC: EC 22:14 → 5MS5E 09-12 00:32
PROVIDERS: ADMIT Family Medicine; ATTEND Family Medicine
PROC: 0J9L0ZZ Drainage of Right Upper Leg Subcutaneous Tissue and Fascia, Open Approach (ICD-10-PCS; principal; 2016-09-12 13:30)
DX: L02.415 Cutaneous abscess of right lower limb (principal); F17.200 Nicotine dependence, unspecified, uncomplicated; L03.115 Cellulitis of right lower limb; Z86.14 Personal history of Methicillin resistant Staphylococcus aureus infection
CPT/HCPCS: 36415; 80053; 85025; 87040; 87070; 87075; 87077; 87186; 87205; 96360; 96361; 99284

== ENCOUNTER 2017-03-27 18:43 | Emergency (ER) | payer BC ==
[2017-03-27 18:47] VITALS: BP 137/60; PULSE 97; RESP 18; TEMP 97.2
--- NOTE | 2017-03-27 19:37 | XR ---
EXAMINATION TYPE: XR finger RT DATE OF EXAM: 03/27/2017 COMPARISON: NONE HISTORY: Laceration and pain TECHNIQUE: 3 views FINDINGS: I see no fracture nor dislocation. Joint spaces are normal. There is no sign of a foreign b josé luis. IMPRESSION: Negative right index finger exam.
[2017-03-27] MEDS ORDERED: DIPH,PERTUS(ACELL)TETVAC-LF 0.5 ML VIAL IM ONE (20:12)
--- NOTE | 2017-03-27 20:45 | ED ---
Wound/Laceration HPI - General Chief Complaint: Wound/Laceration Stated Complaint: Hand laceration Time Seen by Provider: 03/27/17 20:00 Source: patient, RN notes reviewed Mode of arrival: ambulatory Limitations: no limitations - History of Present Illness Initial Comments: This is a 41-year-old male who presents to emergency department with chief complaint of right index finger laceration. Patient states that prior to arrival he was cutting wood on a table saw. He states he slipped and accidentally lacerated the knuckle of his right index finger. States bleeding is controlled. He states he cannot recall if he is up-to-date with his tetanus vaccination. Denies any other injuries or trauma. Denies fever or chills, abdominal pain, nausea or vomiting, dizziness or headache. - Related Data Previous Rx's Medication Instructions Recorded Levofloxacin Oral Soln [Levaquin 0 mg PO DAILY #10 ml 09/14/16 Oral Soln] Cephalexin [Keflex] 500 mg PO Q12HR #20 cap 03/27/17 Allergies Allergy/AdvReac Type Severity Reaction Status Date / Time No Known Allergies Allergy Verified 03/27/17 18:47 Review of Systems ROS Statement: Those systems with pertinent positive or pertinent negative responses have been documented in the HPI. ROS Other: All systems not noted in ROS Statement are negative. Past Medical History Past Medical History: No Reported History Additional Past Medical History / Comment(s): cellulitis History of Any Multi-Drug Resistant Organisms: MRSA Date of last positivie culture/infection: 09/12/16 MDRO Source:: hip Past Surgical History: Adenoidectomy, Cholecystectomy, Orthopedic Surgery Past Psychological History: No Psychological Hx Reported Smoking Status: Current every day smoker Past Alcohol Use History: Occasional Past Drug Use History: None Reported General Exam - General Exam Comments Initial Comments: General: Awake and alert, well-developed; in no apparent distress. HEENT: Head atraumatic, normocephalic. Pupils are equal, round and reactive to light. Extraocular movements intact. Oropharynx moist without erythema or exudate. Neck: Supple. Normal ROM. Cardiovascular: Regular rate and rhythm. No murmurs, rubs or gallops. Chest symmetrical. Respiratory: Lungs clear to auscultation bilaterally. No wheezes, rales or rhonchi. Normal respiratory effort with no use of accessory muscles. Musculoskeletal: Normal range of motion of the right index finger. Approximately 3.0 cm linear laceration over dorsal aspect of PIP joint right index finger. Sensation is intact. Radial pulses are 2+ equal and palpable bilaterally. Skin: [place], warm and dry without rashes or lesions. Neurological: Alert and oriented x3. CN II-XII grossly intact. Speech is fluent and answers are appropriate. No focal neuro deficits. Psychiatric: Normal mood and affect. No overt signs of depression or anxiety noted. Limitations: no limitations Course Vital Signs 03/27/17 18:46 Temperature 97.2 F L Pulse Rate 97 Respiratory 18 Rate Blood Pressure 137/60 O2 Sat by Pulse 99 Oximetry Procedures - Laceration Laceration #1 Consent Obtained: verbal consent Indication: laceration Site: hand (dorsal aspect PIP joint right index finger) Size (cm): 3 Description: linear Depth: simple, single layer Anesthetic Used: lidocaine 1% Anesthesia Technique: nerve block Amount (mls): 5 Pre-repair: wound explored, irrigated extensively, deep structures intact Type of Sutures: nylon Size of Sutures: 4-0 Number of Sutures: 4 Technique: simple, interrupted Patient Tolerated Procedure: well, no complications Medical Decision Making - Medical Decision Making This is a 41-year-old male who presents to emergency department with chief complaint of right index finger laceration. Patient has normal range of motion and is neurovascularly intact. X-ray revealed no osseous involvement. 4 sutures were placed and patient tolerated well without complication. Patient was made up-to-date with his tetanus vaccination. He will be started on Keflex. Recommended removal of sutures in 10-14 days. Patient was given a finger splint as the laceration is directly over his PIP joint. Patient will be discharged home. He is in agreement with plan and voices understanding. All questions were answered. Disposition Clinical Impression: Finger laceration Disposition: HOME SELF-CARE Condition: Good Instructions: Finger Laceration (ED) Additional Instructions: Please have sutures removed in 10-14 days. Please keep sutures dry for the next 24-48 hours. After that time, can wash with mild soap and water. Please take medications as prescribed. Please follow up with primary care provider within 1-2 days. Return to emergency department if symptoms should worsen or any concerns arise. Prescriptions: Cephalexin [Keflex] 500 mg PO Q12HR #20 cap Referrals: Trent Baron MD [Primary Care Provider] - 1-2 days Time of Disposition: 20:44
== END 2017-03-27 20:59 | disposition home or self-care (01) ==
LOC: EC 18:43
DX: S61.210A Laceration without foreign body of right index finger without damage to nail, initial encounter (principal); F17.200 Nicotine dependence, unspecified, uncomplicated; Z86.14 Personal history of Methicillin resistant Staphylococcus aureus infection; Z23 Encounter for immunization; W31.2XXA Contact with powered woodworking and forming machines, initial encounter; Y93.89 Activity, other specified
CPT/HCPCS: 12002; 90471; 90715; 99283

== ENCOUNTER → 2017-08-11 | Outpatient (CLI) | payer BC ==
--- NOTE | 2017-08-12 15:08 | ECHOF ---
Referral Reason:Dizziness R42 and Fatigue R53.82 MEASUREMENTS -------- HEIGHT: 182.9 cm WEIGHT: 113.4 kg BP: RVIDd: 3.8 cm (< 3.3) IVSd: 1.0 cm (0.6 - 1.1) LVIDd: 4.7 cm (3.9 - 5.3) LVPWd: 1.1 cm (0.6 - 1.1) IVSs: 1.2 cm LVIDs: 3.1 cm LVPWs: 1.5 cm LAESV Index (A-L): 10.94 ml/m Ao Diam: 3.6 cm (2.0 - 3.7) AV Cusp: 2.4 cm (1.5 - 2.6) LA Diam: 3.3 cm (2.7 - 3.8) EPSS: 0.4 cm MV E Laurent: 0.48 m/s MV DecT: 423 ms MV A Laurent: 0.80 m/s MV E/A Ratio: 0.60 RAP: 5.00 mmHg RVSP: 9.99 mmHg MV EF SLOPE: 152.34 mm/s (70 - 150) MV EXCURSION: 2.39 cm (> 18.000) FINDINGS -------- Sinus rhythm. This was a technically adequate study. The left ventricular size is normal. There is borderline concentric left ventricular hypertrophy. Overall left ventricular systolic function is low-normal with, an EF between 50 - 55 %. The right ventricle is mild to moderately enlarged. Normal LA size by volume 22+/-6 ml/m2. The right atrium is normal in size. The aortic valve is trileaflet, and appears structurally normal. No aortic stenosis or regurgitation. The mitral valve is normal. There is trace mitral regurgitation. Trace tricuspid regurgitation present. Right ventricular systolic pressure is normal at < 35 mmHg. There is no evidence of pulmonary hypertension. Trace/mild (physiologic) pulmonic regurgitation. The aortic root is borderline dilated up to 3.7 cm. Normal inferior vena cava with normal inspiratory collapse consistent with estimated right atrial pre ssure of 5 mmHg. There is no pericardial effusion. CONCLUSIONS -------- 1. Sinus rhythm. 2. This was a technically adequate study. 3. The left ventricular size is normal. 4. There is borderline concentric left ventricular hypertrophy. 5. Overall left ventricular systolic function is low-normal with, an EF between 50 - 55 %. 6. The right ventricle is mild to moderately enlarged. 7. Normal LA size by volume 22+/-6 ml/m2. 8. The aortic valve is trileaflet, and appears structurally normal. No aortic stenosis or regurgitati on. 9. There is trace mitral regurgitation. 10. Trace tricuspid regurgitation present. 11. Right ventricular systolic pressure is normal at < 35 mmHg. 12. There is no evidence of pulmonary hypertension. 13. Trace/mild (physiologic) pulmonic regurgitation. 14. The aortic root is borderline dilated up to 3.7 cm. 15. There is no pericardial effusion. [employer]PLIANCES SALESPERSON: Ricky Schulz RDCS
== END | disposition home or self-care (01) ==
LOC: RADECHMAIN 14:36
PROVIDERS: ATTEND Family Medicine
DX: I51.7 Cardiomegaly (principal); I77.819 Aortic ectasia, unspecified site; R42 Dizziness and giddiness; R53.83 Other fatigue
CPT/HCPCS: 93306

== ENCOUNTER → 2019-09-04 | Outpatient (CLI) | payer BC | END | disposition home or self-care (01) | LOC: LABWHC1 09:08 | PROVIDERS: ATTEND Family Medicine | DX: R05 Cough (principal); Z11.59 Encounter for screening for other viral diseases | CPT/HCPCS: U0003; C9803 ==

== ENCOUNTER → 2020-05-27 | Outpatient (CLI) | payer BC | END | disposition home or self-care (01) | LOC: LABWHC1 16:08 | PROVIDERS: ATTEND Family Medicine | DX: Z20.822 Contact with and (suspected) exposure to COVID-19 (principal) | CPT/HCPCS: U0003; C9803; U0005 ==